=== PATIENT | male | born 1935 | race Caucasian/White ===

== ENCOUNTER 2017-01-22 19:08 | Emergency (ER) | payer MEDICARE ==
[2017-01-22 18:02] LABS: BASOPHILS 0.4 %; BASOPHILS ABSOLUTE 0.05 10/3/uL (0.0-0.16); EOSINOPHILS 6.9 %; EOSINOPHILS ABSOLUTE 0.89 10/3/uL (0.0-0.53); ER CBC TAT 0 Hrs 10 Mins; HEMATOCRIT 42.6 % (40.0-51.0); HEMOGLOBIN 14.6 g/dL (13.6-17.8); IMMATURE GRANULOCYTES 0.4 %; IMMATURE GRANULOCYTES ABSOLUTE 0.05 10/3/uL (0.0-0.11); LYMPHOCYTES 20.5 %; LYMPHOCYTES ABSOLUTE 2.64 10/3/uL (0.67-4.30); MEAN CORPUS HGB CONC 34.3 g/dL (32.0-36.0); MEAN CORPUSCULAR HEMOGLOB 29.3 pg (26.0-34.0); MEAN CORPUSCULAR VOLUME 85.5 fL (80-100); MEAN PLATELET VOLUME 10.2 fL (9.2-13.0); MONOCYTES 8.5 %; MONOCYTES ABSOLUTE 1.09 10/3/uL (0.21-1.20); NEUTROPHILS 63.3 %; NEUTROPHILS ABSOLUTE 8.16 10/3/uL (2.02-8.40); PLATELET COUNT 323 10/3/uL (150-400); RBC DISTRIBUTION WIDTH 14.2 % (12.0-16.0); RED CELL COUNT 4.98 10/6/uL (4.7-6.1); WHITE BLOOD CELLS 12.9 10/3/uL (4.5-10.5)
[2017-01-22 18:03] LABS: MANUAL DIFF NO %
[2017-01-22 18:10] LABS: INTERNATIONAL NORMAL RATI 1.5 UNITS (-); PARTIAL THROMBO TIME 30.3 SEC (22.5-37.2); PROTIME (NOT ORD) 17.8 SEC (12.0-14.5)
[2017-01-22 18:13] LABS: BUN (BLOOD UREA NITROGEN) 29 MG/DL (6-23); CALCIUM, SERUM 9.4 MG/DL (8.5-10.4); CHEST PAIN PROFILE TAT 0 Hrs 21 Mins; CHLORIDE, SERUM 100 MMOL/L (96-112); CO2 (CARBON DIOXIDE) 28 MMOL/L (24-34); CREATININE 1.54 MG/DL (0.70-1.30); GFR AFRICAN AMERICAN 48 ML/MIN (>=60); GFR NON AFRICAN AMERICAN 41 ML/MIN (>=60); GLUCOSE, SERUM 128 MG/DL (60-99); POTASSIUM, SERUM 4.5 MMOL/L (3.5-5.3); SODIUM, SERUM 134 MMOL/L (135-148); TROPONIN I <0.02 NG/ML (<0.05)
[~2017-01-22 19:08] MED LIST: ADALAT CC30 MG PO; ASA5GR PO; ASAB PO; BETAPACE80 PO; BRILINTA90 MG PO; C1 PO; C5 PO; CARDURA8 MG PO; CYMBALTA30 PO; FLOMAX4 PO; GLUCPH PO; KLOR-CON M2020 MEQ PO; LOFIB160 PO; LOTREL1 CA3 PO; NEXIUM40 PO; PLAVIX PO; PRAVAC PO; PRAVACHOL40 MG PO; SACU1TAB PO; SINGULAIR1 PO; SPIRO25 PO; ULTRAM50 PO; VICODINTAB PO; VITC500 PO; Z300 PO
[2017-01-22] MEDS ORDERED: PRAVACHOL80 MG PO (20:22)
[2017-01-22] MEDS ORDERED: FLOMAX4 PO (20:22)
[2017-01-22] MEDS ORDERED: LOTE20 PO (20:22)
[2017-01-22] MEDS ORDERED: CYMBALTA60 PO (20:23)
[2017-01-22] MEDS ORDERED: Z300 PO (20:23)
[2017-01-22] MEDS ORDERED: BETAPACE80 PO (20:23)
[2017-01-22] MEDS ORDERED: ULTRAM50 PO (20:23)
[2017-01-22] MEDS ORDERED: ENTRESTO (20:25)
[2017-02-16] MEDS ORDERED: LOFIB160 PO (12:55)
[2017-02-16] MEDS ORDERED: GLUCOPHAGE1000 MG PO (12:55)
[2017-02-16] MEDS ORDERED: SACU1TAB PO (12:55)
[2017-02-16] MEDS ORDERED: C1 PO (12:55)
[2017-02-16] MEDS ORDERED: SPIRO25 PO (12:56)
[2017-02-16] MEDS ORDERED: CYMBALTA60 PO (12:56)
[2017-02-16] MEDS ORDERED: KLOR-CON M2020 MEQ PO (12:56)
[2017-02-16] MEDS ORDERED: PLAVIX PO (12:56)
[2017-02-16] MEDS ORDERED: NXL3 PO (12:57)
== END 2017-01-22 21:16 | disposition home or self-care (01) ==
LOC: ER 19:08
PROVIDERS: Emergency Medicine
DX: I25.5 Ischemic cardiomyopathy (principal); I25.2 Old myocardial infarction; I10 Essential (primary) hypertension; Z95.5 Presence of coronary angioplasty implant and graft; E11.9 Type 2 diabetes mellitus without complications; Z86.73 Personal history of transient ischemic attack (TIA), and cerebral infarction without residual deficits; Z79.899 Other long term (current) drug therapy
CPT/HCPCS: 71010; 80048; 83735; 83880; 84484; 85025; 85610; 85730; 93005; 99285